=== PATIENT | male | born 1965 | race Caucasian/White ===

== ENCOUNTER → 2017-08-07 15:35 | Outpatient (CLI) | payer BC, SELFPAY ==
[2017-08-07 16:53] LABS: Alanine Aminotransferase 117 U/L (12-78); Albumin Level 3.7 gm/dL (3.4-5.0); Albumin/Globulin Ratio 0.9 (1.1-1.8); Alkaline Phosphatase 71 U/L (46-116); Anion Gap 4.1 mEq/L (5-15); Aspartate Amino Transferase 65 U/L (15-37); Bilirubin,Total 1.5 mg/dL (0.2-1.0); Blood Urea Nitrogen 19 mg/dL (7-18); CKMB Relative Index 0.5 U/L (0-4.0); Calcium 9.7 mg/dL (8.5-10.1); Carbon Dioxide 33 mmol/L (21.0-32.0); Chloride 98 mmol/L (98-107); Creatine Kinase 224 U/L (39-308); Creatine Kinase MB 1.2 ng/ml (0.0-3.6); Estimated Glomerular Filt Rate 53 ml/min (>60); GFR (African American) 65 ML/MIN (>60); Glucose 117 mg/dL (74-106); Potassium 3.1 mmoL/L (3.5-5.1); Sodium 132 mmol/L (136-145); Total Protein,Serum 7.7 gm/dL (6.4-8.2); Troponin I < 0.02 ng/ml (0.00-0.06)
== END ==
PROVIDERS: Visit Provider Family Medicine
DX: R00.0 Tachycardia, unspecified (principal)
CPT/HCPCS: 36415; 80053; 82550; 82553; 84484; 93005

== ENCOUNTER → 2021-01-05 10:05 | Outpatient (CLI) | payer BC, SELFPAY | PROVIDERS: PCP Family Medicine; Visit Provider Nurse Practitioner | DX: Z20.822 Contact with and (suspected) exposure to COVID-19 (principal); U07.1 COVID-19 | CPT/HCPCS: C9803; U0003; U0005 ==

== ENCOUNTER 2022-07-10 18:39 | Emergency (ER) | payer BC, SELFPAY ==
[2022-07-10 18:40] VITALS: BP 156/80; PULSE 83; RESP 20; TEMP 36.6; O2SAT 97; BMI 36.5
--- NOTE | 2022-07-10 18:47 | EXP.UTC ---
Discharge Plan Disposition Patient Disposition: Home, Self-Care Condition: Good Prescriptions Prescriptions: New cyclobenzaprine 10 mg Tablet 10 mg PO BID PRN (Reason: Muscle Spasm) Qty: 20 0RF ondansetron 4 mg Tablet,Disintegrating 4 mg PO Q8H PRN (Reason: Nausea) Qty: 12 0RF omeprazole 20 mg capsule,delayed release(DR/EC) 20 mg PO DAILY 30 Days Qty: 30 1RF No Action celecoxib 200 mg capsule 200 mg PO DAILY Label Comments: TAKE 1 CAPSULE BY MOUTH EVERY DAY losartan 25 mg tablet 25 mg PO DAILY Label Comments: TAKE 1 TABLET BY MOUTH EVERY DAY allopurinol 300 mg tablet 300 mg PO DAILY Label Comments: TAKE 1 TABLET BY MOUTH EVERY DAY methylprednisolone 4 mg tablets,dose pack See Rx Instructions .ROUTE .COMPLEX Label Comments: FOLLOW PACKAGE DIRECTIONS Rx Instructions: FOLLOW PACKAGE DIRECTIONS fenofibrate nanocrystallized 145 mg tablet 145 mg PO DAILY Label Comments: TAKE 1 TABLET BY MOUTH EVERY DAY hydrochlorothiazide 12.5 mg tablet 12.5 mg PO DAILY Label Comments: TAKE 1 TABLET BY MOUTH EVERY DAY Janumet 50-1,000 mg tablet 1 tab PO DAILY Label Comments: TAKE 1 TABLET BY MOUTH EVERY DAY Ozempic 1 mg/dose (4 mg/3 mL) pen injector 1 mg SQ WEEKLY Label Comments: ADMINISTER SUBCUTANEOUS DIRECTED ONCE WEEKLY Referrals Follow up/Referrals: Krystle Spring MD [Primary Care Provider] - See instructions Activity Restrictions/Add. Instructions Additional Instructions/Restrictions: Go home and rest. No heavy lifting. No twisting. Continue the anti-inflammatory medication that your doctor prescribed. The zofran (ondesetron) is for nausea. Take this to see if it helps your GI symptoms. Stop the steroids that you have been taking. The muscle relaxer (cyclobenzaprine--Flexeril) will make you drowsy, so don't drive or operate heavy machinery after taking it. Follow up with your regular doctor. Follow up stephanie if your GI symptoms don't improve by tomorrow. GO TO THE ER FOR ANY WORSENING SYMPTOMS OR CONCERN, ESPECIALLY BOWEL OR BLADDER ISSUES, SADDLE AREA NUMBNESS, FEVER, ETC Clinical Impressions Clinical Impression: Low back pain, Gastritis Stand Alone Forms Stand Alone Forms: Work/School Release Instructions Patient Instructions: DI for Low Back Pain, DI for Gastritis, Cyclobenzaprine Discharge ED Provider: Kareem [facility] HPI General Stated complaint: BackAnd Abd Pain Time Seen by Provider: 07/10/22 18:47 History of Present Illness Provider Complaint: He states that for the past 1 week he has had low back pain. He saw his pcp for this and was prescribed a medrol dose pack and some anti-inflammatory medication. He cannot remember the name and his pharmacy is closed. He states that he had to stop the steroids yesterday due to it upsetting his stomach. He states that his back is still hurting, but it has started to feel better. He came in today to see if there was something that could be done to help his back finish getting better and something to help settle his stomach. He denies any chest pain and shortness of breath. Related Data Home Medications Medication Instructions Recorded Confirmed allopurinol 300 mg tablet 300 mg PO DAILY gout 07/10/22 07/10/22 celecoxib 200 mg capsule 200 mg PO DAILY . 07/10/22 07/10/22 fenofibrate nanocrystallized 145 145 mg PO DAILY . 07/10/22 07/10/22 mg tablet hydrochlorothiazide 12.5 mg tablet 12.5 mg PO DAILY . 07/10/22 07/10/22 losartan 25 mg tablet 25 mg PO DAILY . 07/10/22 07/10/22 methylprednisolone 4 mg tablets in See Rx Instructions .Route 07/10/22 07/10/22 a dose pack .COMPLEX . semaglutide 1 mg/dose (4 mg/3 mL) 1 mg SQ WEEKLY Diabetes 07/10/22 07/10/22 subcutaneous pen injector (Ozempic) sitagliptin phosphate 50 1 tab PO DAILY Diabetes 07/10/22 07/10/22 mg-metformin 1,000 mg tablet (Doeumeavis) Previo
[2022-07-10 19:49] VITALS: BP 156/80; PULSE 83; RESP 20; TEMP 36.6; O2SAT 97
== END 2022-07-10 19:30 | disposition home or self-care (01) ==
PROVIDERS: Emergency Provider Nurse Practitioner Family; PCP Family Medicine
DX: K29.00 Acute gastritis without bleeding (principal); M54.59 Other low back pain; E11.9 Type 2 diabetes mellitus without complications; I10 Essential (primary) hypertension
CPT/HCPCS: 99212; 99214; G0463